=== PATIENT | male | born 1980 | race Caucasian/White ===

== ENCOUNTER 2024-05-15 10:49 | Emergency (ER) | payer BC, SELFPAY ==
[2024-05-15 11:17] VITALS: BMI 30.3
--- NOTE | 2024-05-15 11:49 | ED.GENMED ---
History of Present Illness
General
Chief Complaint: Musculo-Skeletal Complaint
Time Seen by Provider: 05/15/24 11:21
History of Present Illness
History of Present Illness:
44-year-old male presents the emergency department for evaluation of right upper back pain, notes that he fell off of a ladder approximately 12 feet high on Wednesday, states he landed on his feet but then fell backward and struck a rock on the right
subscapular thoracic back. Pain is quite minimal at this time. Denies any pleuritic pain today however this was present yesterday. No hemoptysis or anterior chest pain. Does not take blood thinners.
Review of Systems
Review of Systems
Allergies reviewed?: Yes
All Other Systems: ROS reviewed and negative except as documented in HPI and ROS
Phy Exam
Physical Exam
Physical Exam:
GEN: Well appearing, NAD, WDWN
Eyes: PERRLA, EOMs intact, no scleral icterus
HENT: NCAT, oral mucosa moist
Lungs: CTAB, no wheezes, rales, rhonchi, normal chest wall excursion
Cardiac: RRR, no M/R/G, no peripheral edema. Radial pulses 2+ bilat
Abdomen: S, NT, ND, NABS, no masses or hepatosplenomegaly
Neuro: AO x 3
MSK: Minor ecchymosis to the right thoracic back, subscapular region. No palpable deformity or crepitus. Normal C-spine and lumbar spine range of motion
Skin: No rashes, petechiae. Normal color, no pallor or jaundice.
Psych: Calm, cooperative, proper hygiene
Course
Orders/Labs/Results
Orders:
Orders
05/15/24 11:49
CR Ribs-right 3 Vw W/pa Chest* Urgent
Comment:
Reason For Exam: fall R posterior/subscapular injury
MDM/Problems Addressed
MDM/Problems Addressed:
Imaging reveals an isolated rib fracture, no evidence for hemopneumothorax. His pain is quite well-controlled at this time. Discussed importance of incentive spirometry
*Critical Care Note
Total Time (30-74mins, 75-104mins- exclusive of procedures): Not Applicable
ED Attending Note
-
Portions of this chart may have been created with voice recognition software.� Occasional wrong word or��sound alike� substitutions may have occurred due to the inherent limitations of voice recognition software.
Discharge Plan
Departure
Patient Disposition: Home (Routine Discharge)
Date of Disposition: 05/15/24
Time of Disposition: 12:19
Patient with high blood pressure during this ER visit?: No
Discharge Problem:
Closed rib fracture
Instructions: How to Use an Incentive Spirometer, Rib Fracture
Referrals:
UNKNOWN - PT DOES,NOT KNOW [Family Provider] -
Activity Restrictions/Additional Instructions:
Ibuprofen 600mg and acetaminophen 1000mg every 8 hours for pain
Ice often
Use incentive spirometer three times per day for 1 week
Interventions
Interventions:
*Risk Screen - Suicide Last Done: 05/15/24 11:03
*Neglect/Abuse Screening Last Done: 05/15/24 11:03
*Nursing Disposition Last Done: 05/15/24 12:32
ED-Musculoskeletal Assessment Last Done: 05/15/24 11:16
Discharge Date and Time
Discharge Date/Time: 05/15/24 12:33
Print Language: BELARUSIAN
== END 2024-05-15 12:33 | disposition home or self-care (01) ==
LOC: EMR 10:49
PROVIDERS: EMERGENCY PHYSICIAN Emergency Medicine
DX: S22.31XA Fracture of one rib, right side, initial encounter for closed fracture (principal); W11.XXXA Fall on and from ladder, initial encounter; W22.09XA Striking against other stationary object, initial encounter
CPT/HCPCS: 99283; 71101